=== PATIENT | female | born 1965 | race Caucasian/White ===

== ENCOUNTER 2016-10-13 18:10 | Emergency (ER) | payer OTHER ==
[~2016-10-13] VITALS: Ht 149.9 cm; Wt 47.2 kg
[2016-10-13 18:33] VITALS: BP 129/91
== END 2016-10-13 19:36 | disposition home or self-care (01) ==
LOC: ER 18:14
DX: L03.031 Cellulitis of right toe (principal); C18.9 Malignant neoplasm of colon, unspecified; Z88.6 Allergy status to analgesic agent; Z88.8 Allergy status to other drugs, medicaments and biological substances
CPT/HCPCS: 99283; A4606; Z7610